=== PATIENT | male | born 1995 | race Caucasian/White ===

== ENCOUNTER 2016-09-20 14:16 | Observation (INO) | payer BC, OTHER ==
--- NOTE | 2016-09-20 15:00 | EDPHY ---
HPI/HX/ROS/PE/MDM Narrative: CHIEF COMPLAINT: Periumbilical pain HISTORY OF PRESENT ILLNESS: The patient is a 20-year-old male presenting with abdominal pain that started yesterday. He reports a constant cramping sensation to the periumbilical region. His pain is worse when lying on his side. He has associated nausea and states he was dry heaving last night and throughout the day today, no emesis. He went to [facility] prior to arrival and was told he was febrile at 100 and sent to ED. Patient notes mild sore throat last week. He states he continues to have an appetite. Patient was constipated recently, no diarrhea. No urinary complaints. REVIEW OF SYSTEMS: Aside from elements discussed in the HPI, a comprehensive 10-point review of systems was reviewed and is negative. PAST MEDICAL HISTORY: Denies. SOCIAL HISTORY: Social alcohol use. Marijuana use daily. VITAL SIGNS: Reviewed by me GENERAL: Well-developed, well-nourished, resting comfortably in no respiratory distress. HEENT: Atraumatic. Eyes: No icterus, no injection. Mouth: moist mucous membranes. No erythema or lesions. Neck: supple with no adenopathy. Throat: Slight erythema, no exudates. LUNGS: Clear to auscultation bilaterally, no wheezes, rhonchi or rales. CARDIAC: Regular rate and rhythm, no rubs, murmurs or gallops. ABDOMEN: Tenderness to right periumbilical, voluntary guarding. BACK: No CVA tenderness. EXTREMITIES: No trauma. No edema. Range of motion is normal throughout. NEURO: Alert and oriented, grossly nonfocal. SKIN: Warm and dry, no rash. PSYCHIATRIC: Normal mentation, no agitation. Portions of this note were transcribed by a district medical examiner. I personally performed a history, physical exam, medical decision making, and confirmed accuracy of information the transcribed note. ED Course: Patient presents with periumbilical tenderness. On exam he has voluntary guarding and right periumbilical firmness and tenderness. Patient received IV Fentanyl for pain. Patient has elevated WBC at 20. He is afebrile. Plan for CT abdomen/pelvis to look for appendicitis. CT imaging results were called to me by the radiologist. CT shows acute appendicitis. I spoke to the general surgeon, Dr. Roman who will see the patient in the ED. Patient received IV Invanz. 4:15 p.m.: I discussed findings with the patient. He agrees with plan for admission. MDM: After obtaining the patient's history and performing an examination, differential diagnosis considered included but was not limited to appendicitis, cholecystitis, gastritis, pancreatitis, kidney stones, urinary tract infections and other causes. - Data Points Imaging Results: Imaging Impressions Abdomen CT 09/20/16 15:36 Impression: 1. Acute appendicitis with appendiceal thickening up to 15 mm, appendicolith, and periappendiceal inflammatory changes. 2. No bowel obstruction, pneumoperitoneum or drainable abscess. Findings and recommendations discussed with Emergency Department physician, Kari Downs MD at 16:07 hour, 09/20/2016. Final report concurs with initial preliminary interpretation. Imaging: Discussed imaging studies w/ director game Radiologist Laboratory Results: Laboratory Results 09/20/16 15:15 09/20/16 15:15 09/20/16 09/20/16 09/20/16 15:20 15:15 15:15 WBC 20.42 10^3/uL H 10^3/uL (3.80-9.50) RBC 4.55 10^6/uL 10^6/uL (4.40-6.38) Hgb 15.0 g/dL g/dL (13.7-17.5) Hct 41.6 % % (40.0-51.0) MCV 91.4 fL fL (81.5-99.8) MCH 33.0 pg pg (27.9-34.1) MCHC 36.1 g/dL g/dL (32.4-36.7) RDW 11.1 % L % (11.5-15.2) Plt Count 255 10^3/uL 10^3/uL (150-400) MPV 9.4 fL fL (8.7-11.7) Neut % (Auto) 83.8 % H % (39.3-74.2) Lymph % (Auto) 5.2 % L % (15.0-45.0) [place] % (Auto) 10.3 % % (4.5-13.0) Eos % (Auto) 0.0 % L % (0.6-7.6) Baso % (Auto) 0.1 % L % (0.3-1.7) Nucleat RBC Rel Count 0.0 % % (0.0-0.2) Absolute Neuts (auto) 17.10 10^3/uL H 10^3/uL (1.70-6.50) Absolute Lymphs (auto) 1.07 10^3/uL 10^3/uL (1.00-3.00) Absolute Monos (auto) 2.11 10^3/uL H 10^3/uL (0.30-0.80) Absolute Eos (auto) 0.00 10^3/uL L 10^3/uL (0.03-0.40) Absolute Basos (auto) 0.02 10^3/uL 10^3/uL (0.02-0.10) Absolute Nucleated RBC 0.00 10^3/uL 10^3/uL (0-0.01) Immature Gran % 0.6 % % (0.0-1.1) Immature Gran # 0.12 10^3/uL H 10^3/uL (0.00-0.10) Sodium 137 mEq/L mEq/L (134-144) Potassium 3.7 mEq/L mEq/L (3.5-5.2) Chloride 100 mEq/L mEq/L (97-110) Carbon Dioxide 22 mEq/l mEq/l (22-31) Anion Gap 15 mEq/L mEq/L (8-16) BUN 8 mg/dL mg/dL (7-23) Creatinine 0.8 mg/dL mg/dL (0.7-1.3) Estimated GFR > 60 Glucose 106 mg/dL H mg/dL (70-100) Calcium 9.9 mg/dL mg/dL (8.5-10.4) Urine Color YELLOW Urine Appearance CLEAR Urine pH 7.0 (5.0-7.5) Ur Specific [place] 1.013 (1.002-1.030) Urine Protein NEGATIVE (NEGATIVE) Urine Ketones NEGATIVE (NEGATIVE) Urine Blood NEGATIVE (NEGATIVE) Urine Nitrate NEGATIVE (NEGATIVE) Urine Bilirubin NEGATIVE (NEGATIVE) Urine Urobilinogen NEGATIVE EU EU (0.2-1.0) Ur Leukocyte Esterase NEGATIVE (NEGATIVE) Urine Glucose NEGATIVE (NEGATIVE) Medications Given: Discontinued Medications Fentanyl (Sublimaze) 75 mcg IVP EDNOW ONE Stop: 09/20/16 15:37 Last Admin: 09/20/16 15:45 Dose: 75 mcg Sodium Chloride (Ns) 1,000 mls @ 0 mls/hr IV ONCE ONE; Wide Open PRN Reason: Protocol Stop: 09/20/16 15:37 Last Admin: 09/20/16 15:45 Dose: 1,000 mls Ertapenem 1 gm/ Sodium (Chloride) 100 mls @ 200 mls/hr IV EDNOW ONE PRN Reason: Protocol Stop: 09/20/16 16:43 Last Admin: 09/20/16 16:40 Dose: 100 mls General Time Seen by Provider: 09/20/16 14:58 Initial Vital Signs: Initial Vital Signs Temperature (C) 37.8 C 09/20/16 14:30 Heart Rate 93 09/20/16 14:30 Respiratory Rate 16 09/20/16 14:30 Blood Pressure 124/93 H 09/20/16 14:30 O2 Sat (%) 98 09/20/16 14:30 O2 Delivery Mode Room Air Allergies/Adverse Reactions: No Known Allergies Allergy (Verified 09/20/16 14:30) Home Medications: Medication Instructions Recorded NK [No Known Home Meds] 05/19/13 Departure - Departure Disposition: [facility] Inpatient Acute Clinical Impression: Appendicitis Qualifiers: Appendicitis type: acute appendicitis Acute appendicitis type: unspecified acute appendicitis type Qualified Code(s): K35.80 - Unspecified acute appendicitis Abdominal pain Qualifiers: Abdominal location: periumbilical Qualified Code(s): R10.33 - Periumbilical pain Condition: Good Report Scribed for: Kari Downs Report Scribed by: Kathleen Arredondo Date of Report: 09/20/16 Time of Report: 15:00
[2016-09-20 15:26] LABS: % IMMATURE GRANULYOCYTES 0.6 % (0.0-1.1); ABSOLUTE IMMATURE GRANULOCYTES 0.12 10^3/uL (0.00-0.10); ADD DIFF? NO; ADD MORPH? NO; ADD SCAN? NO; ATYPICAL LYMPHOCYTE FLAG 0 (0-99); FRAGMENT RBC FLAG 0 (0-99); HEMATOCRIT 41.6 % (40.0-51.0); LEFT SHIFT FLG 10 (0-99); LIPEMIA HEMOLYSIS FLAG 90 (0-99); MEAN CELL HEMOGLOBIN CONCENTR. 36.1 g/dL (32.4-36.7); MEAN CELL VOLUME 91.4 fL (81.5-99.8); MEAN PLATELET VOLUME 9.4 fL (8.7-11.7); PLATELET CLUMPS FLAG 0 (0-99); PLATELET COUNT 255 10^3/uL (150-400); RED BLOOD CELL COUNT 4.55 10^6/uL (4.40-6.38); RED CELL DISTRIBUTION WIDTH 11.1 % (11.5-15.2)
[2016-09-20] MEDS ORDERED: fentaNYL 100 MCG/2 ML INJ IVP ONE (15:36)
[2016-09-20] MEDS ORDERED: NS 1,000 ML IV ONE (15:36)
[2016-09-20 15:45] LABS: ANION GAP 15 mEq/L (8-16); CALCIUM 9.9 mg/dL (8.5-10.4); CARBON DIOXIDE 22 mEq/l (22-31); CHLORIDE 100 mEq/L (97-110); CREATININE 0.8 mg/dL (0.7-1.3); GLOMERULAR FILTRATION RATE > 60; GLUCOSE 106 mg/dL (70-100); POTASSIUM 3.7 mEq/L (3.5-5.2); SODIUM 137 mEq/L (134-144)
[2016-09-20 15:46] LABS: COLOR YELLOW; LEUKOCYTE ESTERASE,URINE NEGATIVE (NEGATIVE); NITRITE,URINE NEGATIVE (NEGATIVE)
[2016-09-20] MEDS ORDERED: IOPAMIDOL (ISOVUE-300) 100 ML BTL ONE (15:46)
[2016-09-20] MEDS ORDERED: ERTAPENEM 1 GM in NS 100 ML IV ONE (16:14)
--- NOTE | 2016-09-20 18:18 | PDGENHP ---
History and Physical - Chief Complaint abdominal pain with nausea and vomiting - History of Present Illness Otherwise healthy 20yo M c acute onset abdominal pain x48hrs. The pain was initially in his lower abdomen and was thought to be a "cramp". It persisted for 2 days and last night was associated with nausea. Because of the persistent pain he presented to the ED. CUrrently, He describes the pain as sharp and non radiating near the umbilicus. It is 6/10 in intensity. He denies fevers and chills. Other than the pain, nausea and vomiting he has no complaints History Information - Allergies/Home Medication List Allergies/Adverse Reactions: No Known Allergies Allergy (Verified 09/20/16 14:30) Home Medications: NK [No Known Home Meds] 05/19/13 [Last Taken Unknown] I have personally reviewed and updated: medical history, surgical history - Past Medical History no pertinent PMH - Surgical History Additional surgical history: Wrist fx s/p ORIF - Family History Positive for: non-pertinent - Social History Smoking Status: Never smoked Alcohol Use: Occasionally Drug Use: Marijuana Review of Systems ROS: 10pt was reviewed & negative except for what was stated in HPI & below Physical Exam Temp Pulse Resp BP Pulse Ox 37.5 C 87 20 118/76 98 09/20/16 17:15 09/20/16 17:15 09/20/16 17:15 09/20/16 17:15 09/20/16 17:15 Constitutional: no apparent distress Eyes: PERRL Ears, Nose, Mouth, Throat: moist mucous membranes Cardiovascular: regular rate and rhythym, no murmur, rub, or gallop Respiratory: no respiratory distress, no rales or rhonchi Gastrointestinal: other (soft, ND, minTTP around the umbilicus, no rebound ) Skin: warm Musculoskeletal: full muscle strength Neurologic: AAOx3, sensation intact bilaterally Psychiatric: interacting appropriately Lymph, Heme, Immunologic: No lymphadenopathy Lab Data & Imaging Review 09/20/16 15:15 09/20/16 15:15 WBC 20.42 10^3/uL (3.80-9.50) H 09/20/16 15:15 RBC 4.55 10^6/uL (4.40-6.38) 09/20/16 15:15 Hgb 15.0 g/dL (13.7-17.5) 09/20/16 15:15 Hct 41.6 % (40.0-51.0) 09/20/16 15:15 MCV 91.4 fL (81.5-99.8) 09/20/16 15:15 MCH 33.0 pg (27.9-34.1) 09/20/16 15:15 MCHC 36.1 g/dL (32.4-36.7) 09/20/16 15:15 RDW 11.1 % (11.5-15.2) L 09/20/16 15:15 Plt Count 255 10^3/uL (150-400) 09/20/16 15:15 MPV 9.4 fL (8.7-11.7) 09/20/16 15:15 Neut % (Auto) 83.8 % (39.3-74.2) H 09/20/16 15:15 Lymph % (Auto) 5.2 % (15.0-45.0) L 09/20/16 15:15 [place] % (Auto) 10.3 % (4.5-13.0) 09/20/16 15:15 Eos % (Auto) 0.0 % (0.6-7.6) L 09/20/16 15:15 Baso % (Auto) 0.1 % (0.3-1.7) L 09/20/16 15:15 Nucleat RBC Rel Count 0.0 % (0.0-0.2) 09/20/16 15:15 Absolute Neuts (auto) 17.10 10^3/uL (1.70-6.50) H 09/20/16 15:15 Absolute Lymphs (auto) 1.07 10^3/uL (1.00-3.00) 09/20/16 15:15 Absolute Monos (auto) 2.11 10^3/uL (0.30-0.80) H 09/20/16 15:15 Absolute Eos (auto) 0.00 10^3/uL (0.03-0.40) L 09/20/16 15:15 Absolute Basos (auto) 0.02 10^3/uL (0.02-0.10) 09/20/16 15:15 Absolute Nucleated RBC 0.00 10^3/uL (0-0.01) 09/20/16 15:15 Immature Gran % 0.6 % (0.0-1.1) 09/20/16 15:15 Immature Gran # 0.12 10^3/uL (0.00-0.10) H 09/20/16 15:15 Sodium 137 mEq/L (134-144) 09/20/16 15:15 Potassium 3.7 mEq/L (3.5-5.2) 09/20/16 15:15 Chloride 100 mEq/L (97-110) 09/20/16 15:15 Carbon Dioxide 22 mEq/l (22-31) 09/20/16 15:15 Anion Gap 15 mEq/L (8-16) 09/20/16 15:15 BUN 8 mg/dL (7-23) 09/20/16 15:15 Creatinine 0.8 mg/dL (0.7-1.3) 09/20/16 15:15 Estimated GFR > 60 09/20/16 15:15 Glucose 106 mg/dL (70-100) H 09/20/16 15:15 Calcium 9.9 mg/dL (8.5-10.4) 09/20/16 15:15 Urine Color YELLOW 09/20/16 15:20 Urine Appearance CLEAR 09/20/16 15:20 Urine pH 7.0 (5.0-7.5) 09/20/16 15:20 Ur Specific [place] 1.013 (1.002-1.030) 09/20/16 15:20 Urine Protein NEGATIVE (NEGATIVE) 09/20/16 15:20 Urine Ketones NEGATIVE (NEGATIVE) 09/20/16 15:20 Urine Blood NEGATIVE (NEGATIVE) 09/20/16 15:20 Urine Nitrate NEGATIVE (NEGATIVE) 09/20/16 15:20 Urine Bilirubin NEGATIVE (NEGATIVE) 09/20/16 15:20 Urine Urobilinogen NEGATIVE EU (0.2-1.0) 09/20/16 15:20 Ur Leukocyte Esterase NEGATIVE (NEGATIVE) 09/20/16 15:20 Urine Glucose NEGATIVE (NEGATIVE) 09/20/16 15:20 Visualized and Interpreted imaging results: Yes Interpretation: CT abdomen: acute, non perforated appendicitis Assessment & Plan Assessment: Appendicitis (Acute) Plan: 20yo otherwise healthy male with acute appendicitis. RBA discussed, will plan for OR tonight. Abx given in the ED, maintain NPO
[2016-09-20] MEDS ORDERED: LR 1,000 ML IV ONE (19:30)
[2016-09-20] MEDS ORDERED: BUPIVACAINE/EPI 0.25% 30 ML SDV ONE (20:10)
[2016-09-20] MEDS ORDERED: MIDAZOLAM 2 MG/2 ML VIAL IVP ONE (20:14)
--- NOTE | 2016-09-20 20:16 | PDANEPAE ---
ANE History of Present Illness Acute appendicitis ANE Past Medical History - Cardiovascular History Hx Hypertension: No - Pulmonary History Hx Oxygen in Use at Home: No - Endocrine History Hx Diabetes: No - Chronic Pain History Chronic Pain: No ANE Review of Systems - Exercise capacity METS (RN): 5 METS ANE Patient History - Allergies Allergies/Adverse Reactions: No Known Allergies Allergy (Verified 09/20/16 14:30) - Home Medications Home Medications: NK [No Known Home Meds] 05/19/13 [Last Taken Unknown] - NPO status NPO Since - Liquids (Date): 09/20/16 NPO Since - Liquids (Time): 13:00 NPO Since - Solids (Date): 09/20/16 NPO Since - Solids (Time): 13:00 - Smoking Hx Smoking Status: Never smoked - Alcohol Use Alcohol Use: Occasionally ANE Labs/Vital Signs - Labs Result Diagrams: 09/20/16 15:15 09/20/16 15:15 - Vital Signs Blood Pressure: 126/78 Heart Rate: 86 Respiratory Rate: 16 O2 Sat (%): 96 Height: 182.88 cm Weight: 86.183 kg ANE Physical Exam - Airway Neck exam: FROM Mallampati Score: Class 1 - Pulmonary Pulmonary: no respiratory distress - Cardiovascular Cardiovascular: regular rate and rhythym ANE Anesthesia Plan Anesthesia Plan: general endotracheal anesthesia
[2016-09-20] MEDS ORDERED: LIDOCAINE 2% 5 ML SDV ONE (20:21)
[2016-09-20] MEDS ORDERED: GLYCOPYRROLATE 0.2 MG/1 ML VIAL ONE (20:21)
[2016-09-20] MEDS ORDERED: ROCURONIUM 50 MG/5 ML VIAL ONE (20:22)
[2016-09-20] MEDS ORDERED: fentaNYL 100 MCG/2 ML INJ ONE ×2 (20:23→21:44)
[2016-09-20] MEDS ORDERED: PROPOFOL 200 MG/20 ML VIAL ONE (20:23)
[2016-09-20] MEDS ORDERED: DEXAMETHASONE 4 MG/ML VIAL ONE (21:00)
[2016-09-20] MEDS ORDERED: ONDANSETRON 4 MG/2 ML VIAL ONE (21:00)
[2016-09-20] MEDS ORDERED: PROMETHAZINE HCL 25 MG/ML INJ IVP PRN (21:02)
[2016-09-20] MEDS ORDERED: ONDANSETRON 4 MG/2 ML VIAL IVP PRN ×2 (21:02→21:38)
[2016-09-20] MEDS ORDERED: NALOXONE HCL 0.4 MG/ML INJ IVP PRN (21:02)
[2016-09-20] MEDS ORDERED: SUGAMMADEX SODIUM 200 MG/2 ML VIAL IVP ONE (21:18)
--- NOTE | 2016-09-20 21:37 | POSTOPPROG ---
Post Op Note Date of Operation: 09/20/16 Surgeon: Kris Roman Anesthesiologist: Micheline Anesthesia: GET(General Endotracheal) Pre-op Diagnosis: appendicitis Post-op Diagnosis: same Indication: ` Procedure: lap appy Findings: acute, indurated non perforated Inf/Abcess present in the surg proc area at time of surgery?: No EBL: Minimal Specimen(s): appendix
[2016-09-20] MEDS ORDERED: HYDROmorphONE/DILAUDID 1 MG/ML SYR IVP PRN (21:38)
--- NOTE | 2016-09-20 21:39 | POSTANESTH ---
Post Anesthetic Evaluation Cardiovascular Status: Normal, Stable Respiratory Status: Normal, Stable Level of Consciousness/Mental Status: Can Participate in Eval, Alert and Oriented Pain Control: Adequate, Prn Tx Ordered Nausea/Vomiting Control: Adequate, Prn Tx Ordered
[2016-09-20] MEDS ORDERED: D5W 1/2 NS W/ 20 KCl/L 1,000 ML IV SCH (21:45)
[2016-09-20] MEDS: fentaNYL 100 MCG/2 ML INJ IVP PRN ×2 (21:45→21:54)
[2016-09-20 22:22] VITALS: RESP 16
[2016-09-20] MEDS: HYDROCODONE/APAP 5/325 TAB PO PRN (23:21)
--- NOTE | 2016-09-21 07:18 | GOP ---
[f rep st] OPERATIVE REPORT DATE OF OPERATION: 09/20/2016 SURGEON: Kris Roman MD PATROL COMMANDER: None. ANESTHESIA: General endotracheal. ANESTHESIOLOGIST: Dr. Tobias. PREOPERATIVE DIAGNOSIS: Appendicitis. POSTOPERATIVE DIAGNOSIS: Appendicitis. PROCEDURE PERFORMED: Laparoscopic appendectomy. FINDINGS: Acutely indurated appendix without jud perforation. SPECIMENS: Appendix. ESTIMATED BLOOD LOSS: 5 cc. DESCRIPTION OF PROCEDURE: The patient was greeted in the preoperative suite. Once again, risks, be nefits, and alternatives were discussed. Consent was signed. He was then brought back to the opera tive suite, placed on the OR table in supine position. After all anesthesia machines, including SCD s, were on and functioning, [facility] time-out was performed ending with all in [facility] ement. Antibiotics were given on-call to the operating room. After successful induction, his abdom en was prepped and draped in typical sterile fashion. I entered the abdomen using a Veress needle i nfraumbilically. I successfully achieved pneumoperitoneum to 15 mmHg, which was well tolerated. I then inserted 3 trocars, one 12 mm in the infraumbilical and 5 mm in the suprapubic and left lower q uadrant, all under direct visualization. I identified the appendix by tracing the taeniae inferiorl y. The appendix was acutely stuck to the base of the cecum. It was peeled off with gentle dissecti on and Harmonic Scalpel. Once this was done, I turned my attention first toward taking the mesoappe ndix, this was done successfully with the Harmonic Scalpel. After this was done and the appendix wa s skeletonized all the way down to the base it was amputated using a single fire of the Endo-THOMAS traci e load. It was removed using an EndoCatch bag. The staple line was inspected and noted to be intac t and hemostatic. I then irrigated the right lower quadrant and pelvis with 1 L warm normal saline noting clear effluent in the suction canister. I once again inspected my staple line and mesoappend ix, which were both intact and hemostatic. I infiltrated the port sites with local anesthetic and r emoved them under direct visualization. I closed my infraumbilical port with an interrupted 0 Vicry l stitch in a [id number] fashion noting excellent fascial reapproximation. Skin was closed wit h Monocryl over which Dermabond was placed. The patient was then extubated in the operative suite a nd taken to the PACU in satisfactory condition. DRAINS: None. COUNTS: All counts were reported as correct x2. /[id number]/MODL
[2016-09-21 11:29] VITALS: O2SAT 95
[2016-09-21] MEDS: HYDROCODONE/APAP 5/325 TAB PO PRN (12:32)
[2016-09-21 15:23] VITALS: BP 120/71; PULSE 70; TEMP 98.5
== END 2016-09-21 16:38 | disposition home or self-care (01) ==
LOC: F3E 17:47
PROVIDERS: ADMIT Surgery; ATTEND Surgery
PROC: 3E0337Z Introduction of Electrolytic and Water Balance Substance into Peripheral Vein, Percutaneous Approach (ICD-10-PCS; 2016-09-20)
PROC: 0DTJ4ZZ Resection of Appendix, Percutaneous Endoscopic Approach (ICD-10-PCS; principal; 2016-09-20 20:00)
DX: K35.80 Unspecified acute appendicitis (principal); E86.9 Volume depletion, unspecified
CPT/HCPCS: 44970; 74177; 96361; 96365; 96375; 96376; 99285; G0378; J1100; J1170; J1335; J2250; J2405; J2704; J3010; Q9967